=== PATIENT | male | born 1995 | race Caucasian/White ===

== ENCOUNTER 2020-10-27 08:43 | Emergency (ER) | payer SELFPAY ==
[~2020-10-27] VITALS: Ht 180.3 cm; Wt 108.9 kg
[2020-10-27 08:48] VITALS: Ht 180.3 cm; Wt 108.9 kg
[2020-10-27 09:13] LABS: BASOPHILS 0.5 % (0-2); EOSINOPHILS 3.4 % (0-7); HEMATOCRIT 40.6 % (42.0-54.0); HEMOGLOBIN 13.4 g/dL (13.5-17.5); LYMPHOCYTES 19.2 % (15-50); MCH 28.9 pg (26.0-34.0); MCHC 33.1 g/dL (31.0-37.0); MCV 87.5 fL (80.0-100.0); MEAN PLATELET VOLUME 7.7 fL (7.4-10.4); MONOCYTES 8.4 % (2-11); NEUTROPHILS 68.5 % (40-80); PLATELET COUNT 281 10x3/uL (130-400); RBC 4.64 10x6/uL (4.20-6.10); RDW 14.4 % (11.5-14.5); WBC 11.5 10x3/uL (4.8-10.8)
[2020-10-27 09:15] VITALS: BP 143/91
[2020-10-27 09:22] LABS: CALC OSMOLALITY 284 mosm/kg (275-300); CALCIUM 9.5 mg/dL (8.5-10.1); CARBON DIOXIDE 26.2 mmol/L (21.0-32.0); CHLORIDE - SERUM 105 mmol/L (98-107); CREATININE - SERUM 1.1 mg/dL (0.6-1.3); GLUCOSE 116 mg/dL (74-106); SODIUM 142 mmol/L (136-145); UREA NITROGEN 14 mg/dL (7-18); eGFR NON AFRICAN AMERICAN 85 mL/min (90-120)
[2020-10-27 09:39] LABS: ALBUMIN 3.9 g/dL (3.4-5.0); ALKALINE PHOSPHATASE 64 U/L (30-120); ALT (SGPT) 50 U/L (10-68); CKMB 0.7 U/L (0.0-3.6); CREATINE KINASE 110 UL (21-232); PRO BNP 11 pg/mL (0-125); PROTEIN - SERUM 7.7 g/dL (6.4-8.2); TROPONIN-I < 0.017 ng/mL (0.000-0.060)
[2020-10-27 09:43] LABS: APTT 28.9 SECONDS (22.8-39.4); INR 1.15 (0.85-1.17); PROTIME 13.6 SECONDS (11.6-15.0)
[2020-10-27 10:01] LABS: SARS-CoV-2 ANTIGEN NEGATIVE- SARS-COV-2 (NEGATIVE)
[2020-10-27] MEDS ORDERED: PREDNISONE50 MG PO (10:36)
[2020-10-27] MEDS ORDERED: ALBUTEROL SULF8.5 GM INH (10:36)
[2020-10-27] MEDS ORDERED: TESSALON PERLE100 MG PO (10:37)
== END 2020-10-27 11:15 | disposition home or self-care (01) ==
LOC: D.ER 08:43
PROVIDERS: Family Medicine
DX: R06.02 Shortness of breath (principal); J20.9 Acute bronchitis, unspecified; Z72.0 Tobacco use; R06.2 Wheezing